=== PATIENT | female | born 1940 | race Caucasian/White ===

== ENCOUNTER 2024-06-23 13:23 | Outpatient (RCR) | payer MEDICARE, BC, SELFPAY ==
--- NOTE | 2024-06-23 15:35 | OPREHPOC ---
Outpatient Therapy Plan of Care This is a Multidisciplinary Plan of Care that may contain components documented by all disciplines (PT, OT, and ST.) PT Problem 1 PT Problem #1 Knowledge Deficit PT Goal 1 Goal / Goal Update The patient will be independent in a home exercise program. Target Visit 4 PT Problem 2 PT Problem #2 Impaired Functional Mobil PT Goal 1 Goal / Goal Update The patient will be able ambulate 800 feet during the 6 minute walk test with 2/10 or less low back pain. Target Visit 16 PT Problem 3 PT Problem #3 Impaired Strength PT Goal 1 Goal / Goal Update The patient will demonstrate improved left ankle dorsiflexion and inversion strength to 3/5 to lessen foot drop and improve gait. Target Visit 16 PT Problem 4 PT Problem #4 Impaired Balance PT Goal 1 Goal / Goal Update The patient will improve Tinetti Balance Scale score to at least 19/28 indicating a lower fall risk. Target Visit 16
--- NOTE | 2024-06-23 15:35 | PTOPEVAL1 ---
Assessment and note entered by Brenda Benz, PT Evaluation Information Assessment Status Evaluation Other ICD-10 Condition Codes ( M48.062 PT) Onset 06/13/24 Subjective Information Melania Horvath reports she has back pain and foot drop for the last few years and she is afraid of falling. She has started noticing that her left foot will catch the ground and she has had 3 big falls between 2021 and 2022. She also notes a pinch and mild pain in her lower back when she stands up straight and when she walks. She notes less pain with leaning forward onto a supporting surface while standing and onto her walker or a grocery cart while walking. She uses a walker in her home and a cane when she goes out. She went to Dr. Harris last week and was diagnosed with spinal stenosis. She was referred to physical therapy for a second time. She tried PT 2 years ago but reports she did not do home exercises and she thinks she did not do as well as she could have. She has had trouble with balance since her falls and feels her left foot gets caught as she walks. She is only able to stand and walk for 5 minutes without support. She has used ibuprofen and tylenol for pain relief but her doctor wants her to only take tylenol. Reported Pain Level Pain Score 0: Self Report Assessment PT Clinical Summary Melania Horvath presents with decreased balance, intermittent low back pain, and left foot drop. She has been diagnosed with spinal stenosis with neurogenic claudication. She has difficulty with standing or walking without forward flexion, balance, and walking on uneven terrain. She objectively demonstrates decreased lumbar AROM with pain elicited with extension and left lateral flexion; decreased core, hip, and left foot strength; left foot drop; decreased balance; and impaired gait. She demonstrates a high fall risk per the Tinetti Balance Scale score. She will benefit from skilled PT to address these limitations. Plan of Care Interventions Electrical Stimulation,Gait Training,Hot Pack/Cold Pack,Manual Therapy,Mechanical Traction,Neuro Re- education,Patient/Caregiver Educati,Therapeutic Activities,Therapeutic Exercise PT Services Indicated Yes Treatment Frequency and 2 times a week for 16 visits
--- NOTE | 2024-07-28 14:54 | OPREHPOC ---
Outpatient Therapy Plan of Care This is a Multidisciplinary Plan of Care that may contain components documented by all disciplines (PT, OT, and ST.) PT Problem 1 PT Problem #1 Knowledge Deficit PT Goal 1 Goal / Goal Update The patient will be independent in a home exercise program. Target Visit 4 Progress Met PT Problem 2 PT Problem #2 Impaired Functional Mobil PT Goal 1 Goal / Goal Update The patient will be able ambulate 800 feet during the 6 minute walk test with 2/10 or less low back pain. Target Visit 16 Progress Not Met PT Problem 3 PT Problem #3 Impaired Strength PT Goal 1 Goal / Goal Update The patient will demonstrate improved left ankle dorsiflexion and inversion strength to 3/5 to lessen foot drop and improve gait. Target Visit 16 Progress Met PT Problem 4 PT Problem #4 Impaired Balance PT Goal 1 Goal / Goal Update The patient will improve Tinetti Balance Scale score to at least 19/28 indicating a lower fall risk. Target Visit 16 Progress Met
--- NOTE | 2024-07-28 14:54 | PTOPDC ---
Assessment and note entered by JT File, PT Evaluation Information Assessment Status Discharge Other ICD-10 Condition Codes ( M48.062 PT) Onset 06/13/24 Subjective Information patient reports she feels Good today. she reports she has the same pain all the time. she reports she has no issues sitting, but her pain increases with standing. she reports she uses a cart for ambulation in the grocery stores. she reports she does feel she has less foot drop of the L foot. Reported Pain Level Pain Score 1: Self Report Assessment PT Clinical Summary mrs. kumar presents to skilled PT services for her 10th skilled PT visit today. she displays increased balance, improved step/stride length, and improved L ankle strength. she has met all goals for skilled PT, except for her ambulation distance goal. she is still limited due to the stenosis in the back, but is will continue with her HEP. she will DC skilled PT today, and will follow up with PCP or PT as needed for any regressions. Plan of Care PT Services Indicated Yes
== END 2024-07-28 17:26 | disposition home or self-care (01) ==
LOC: CHSPT 13:23
DX: M48.062 Spinal stenosis, lumbar region with neurogenic claudication (principal); M54.50 Low back pain, unspecified
CPT/HCPCS: 97110; 97112; 97150; 97161